=== PATIENT | female | born 1955 | race Caucasian/White ===

== ENCOUNTER → 2017-02-16 | Day surgery (SDC) | payer BC ==
[~2017-02-16] MED LIST: CENTRUM PO; FELDENE20 MG PO; FISH OIL 1,0001 CAP PO; HYDROXYZINE HCL25 M1; MOBIC15 MG PO; MULTI-VITAMIN1 EAC1 PO; NEXIUM PO; PREMARIN PO; PROTOPIC100 G1 TOP; SIMVASTATIN20 MG PO; VITAMIN D50000 UNIT PO; VYTORIN 10-20 M1 TAB PO; VYTORIN 10/40 T1 TAB PO; ZETIA PO; [UNRECOGNIZED DRUG - OTHER] TOP; [UNRECOGNIZED DRUG - OTHER] TP
--- NOTE | ~2017-02-16 | OR ---
Unit #: [id number] #: [id number] Patient: DEVON URBINA [id number] [address] [address] [id number] O MR#: [id number] NAME: DEVON URBINA ROOM: Date of Procedure: 02/16/2017 Admission Date: 02/16/2017 Surgeon: Porfirio Mcbride M.D. : 1955 Attending Physician: Porfirio Mcbride M.D. Primary Care Physician: Chitra Tom M.D. OPERATIVE REPORT PREOPERATIVE DIAGNOSIS Colorectal cancer screening in an average-risk patient. PROCEDURE PERFORMED Colonoscopy up to cecum with excellent preparation and good visualization. POSTOPERATIVE DIAGNOSES Mild sigmoid and descending colon diverticulosis. Otherwise, normal examination up to cecum. The quality of the prep was excellent. No polyps were present. SEDATION USED MAC. DESCRIPTION OF PROCEDURE Following detailed explanation of potential risks and complications of a colonoscopy, namely perforation, bleeding, and complication related to sedation, the patient was brought to GI lab and laid in the left lateral decubitus position. A digital rectal examination was performed, which was normal. Lubricated tip of the Olympus video colonoscope was inserted through the anus and advanced under direct vision. The scope was advanced past rectosigmoid into descending colon. Multiple medium-sized diverticula were noticed in this area. The scope tip was then navigated all the way up to cecum with visualization of the ileocecal valve and the appendiceal orifice. Preparation was excellent with good visualization and photodocumentation was obtained. Successive segments of the colonic mucosa were examined upon withdrawal and appeared unremarkable except for presence of diverticulosis seen earlier. The patient did not have any polyps nor any angiodysplasias. No hemorrhoids were seen at the anal verge. The scope was then withdrawn and the patient returned to the recovery area. She tolerated the procedure without any postprocedure complications. Dictated by... Atilio Jason/jerilyn TD: 02/16/2017 16:32 JOB #: [id number] Unit #: [id number] #: [id number] Patient: DEVON URBINA CC: Chitra Tom M.D. OPERATIVE REPORT Page 1 of 1 X Porfirio Mcbride MD PROCEDURE OPERATIVE NOTE
== END | disposition home or self-care (01) ==
LOC: COPS 07:58
PROVIDERS: Internal Medicine Gastroenterology
PROC: 0DJD8ZZ Inspection of Lower Intestinal Tract, Via Natural or Artificial Opening Endoscopic (ICD-10-PCS; principal; 2017-02-16 09:30)
DX: Z12.11 Encounter for screening for malignant neoplasm of colon (principal); K57.30 Diverticulosis of large intestine without perforation or abscess without bleeding; K21.9 Gastro-esophageal reflux disease without esophagitis; Z79.899 Other long term (current) drug therapy; M54.9 Dorsalgia, unspecified; J30.2 Other seasonal allergic rhinitis; Z98.890 Other specified postprocedural states; Z90.710 Acquired absence of both cervix and uterus; Z88.5 Allergy status to narcotic agent; Z88.1 Allergy status to other antibiotic agents; Z88.8 Allergy status to other drugs, medicaments and biological substances

== ENCOUNTER → 2017-07-09 | Outpatient (CLI) | payer BC ==
--- NOTE | ~2017-07-09 | US6 ---
[facility] A Service of [facility] & [facility] RADIOLOGY TEXT RESULTS PATIENT: DEVON URBINA LOCATION: [facility] : 57 UNIT #: [id number] AGE: [address]: Chitra Tom MD SEX: F ORDER DR: [id number] [facility] [address] [facility]. [place], [place] [address] [id number] O MR#: [id number] Acc #: [id number] NAME: DEVON URBINA : 1955 SEX: F STUDY DATE/TIME: 07/09/2017 7:42 UNIT: [facility] ROOM: STUDY DESCRIPTION: US Abdominal Limited Attending Physician: Chitra Tom M.D. Referring Physician: Chitra Tom M.D. Ordering Physician: Chitra Tom M.D. Primary Care Physician: Chitra Tom M.D. MEDICAL IMAGING REPORT This report is preliminary unless electronic signature is present EXAM Right upper quadrant ultrasound 07/09/2017 HISTORY Abnormally elevated liver enzymes on 06/14/2017. FINDINGS The liver demonstrates an increase in echotexture with attenuation of the ultrasound beam characteristic of fatty infiltration. No cystic or solid mass lesions were seen in the liver. The intra- and extrahepatic bile ducts are not dilated. The gallbladder contains a small shadowing gallstone but there is no evidence of gallbladder wall thickening or pericholecystic fluid. The common duct measures 4 mm. The pancreas and right kidney are normal. IMPRESSION 1. Fatty infiltration of the liver. 2. Cholelithiasis. Dictated by... Luis Angel Ross M.D. THIS IS AN ELECTRONICALLY VERIFIED REPORT Luis Angel Ross M.D. at 07/10/2017 7:32 AM VLADIMIR/cliff TD: 07/09/2017 11:19 JOB #: [id number] MEDICAL IMAGING REPORT Page 1 of 1 COPY
== END | disposition home or self-care (01) ==
LOC: CGUS 07:24
DX: R74.8 Abnormal levels of other serum enzymes (principal); K76.0 Fatty (change of) liver, not elsewhere classified; K80.20 Calculus of gallbladder without cholecystitis without obstruction
CPT/HCPCS: 76705